=== PATIENT | male | born 1990 | race Caucasian/White ===

== ENCOUNTER 2019-11-01 07:36 | Observation (INO) ==
[2019-11-01] MEDS ORDERED: SODIUM CHLORIDE 0.9% 1000ML 1,000 ML IV ONE (07:55)
--- NOTE | 2019-11-01 08:00 | Emergency Department Note ---
History of Present Illness General Chief complaint: Abdominal Pain Stated complaint: RT SIDED ABD PAIN,CHILLS,FEVER Time Seen by Provider: 11/01/19 07:44 History of Present Illness Maximum Pain Intensity: 6 29-year-old male who presents to emergency department with complaint of right lower quadrant pain, fever and chills. The patient reports that he did not check his temperature this morning. The patient reports generalized abdominal pain last evening around 8 PM. Symptoms were not relieved with a bowel movement or urination. The patient could not sleep well overnight. Upon awakening this morning, the patient reports that the pain is now in the right lower quadrant. The pain is worsened with rotating his torso to the right, bending over and walking. The patient denies history of bowel disease or constipation. He denies any darkened urine, urinary frequency or urgency. He denies any pain radiating into the back or into the testicle. He denies any recent trauma to th e abdomen. The patient has had nausea without vomiting, and currently rates his discomfort a 6 out of 10. He reports that the pain is constant in nature with occasional sharp jabs of pain. He has no alleviating factors. Home Medications Home Medications Medication Instructions Recorded Confirmed Type Excedrin Migraine 2 tab PO Q6H PRN 11/01/19 11/01/19 History hydrocodone-acetaminophen [[place]] 1 - 2 tab PO .q4-6h PRN #15 tab 11/01/19 Rx Allergies Allergy/AdvReac Type Severity Reaction Status Date / Time No Known Allergies Allergy Unverified 11/01/19 08:08 Past Med/Surg History Medical History No significant past medical history Surgical History No significant past surgical history S/P appy (11/01/19) Laparoscopic Appendectomy Dr. Prieto 11-01-19 Social History Preferred Language: Greenlandic Communication Ability: Effective Sales Representative Facility Services Required: No Beliefs That Will Affect Care: None marital status: Single Current Living Situation: Alone current occupational status: employed Feels Safe at Home: Yes Smoking Status: Never smoker Hx Alcohol Use: Yes Alcohol type: beer, wine and hard liquor Hx Substance Use: No Review of Systems 10 system review was performed and was negative except for pertinent positives and negatives as indicated in history of present illness Physical Exam Vital Signs Vital Signs - 24 hr 11/01/19 07:38 11/01/19 09:16 Temperature 36.6 C Temperature Source Oral Pulse Rate 93 H Pulse Rate [Right Finger] 87 Pulse Rhythm [Right Finger] Regular Pulse Strength [Right Finger] Normal Respiratory Rate 18 18 Respiratory Effort / Characteristics Non-Labored Spontaneous Respiratory Depth Normal Respiratory Pattern Regular Blood Pressure 134/85 Blood Pressure [Right Arm] 139/87 Blood Pressure Mean 101 Blood Pressure Mean [Right Arm] 104 Blood Pressure Position [Right Arm] Sitting Pulse Oximetry 98 100 Oxygen Delivery Method Room Air Room Air Sepsis Recent Fever Within 48 Hours No Sepsis New/Unexplained Change in Mental Status No Sepsis Action Taken by Nursing No Action Required CONSTITUTIONAL: Healthy and well nourished. Patient appears in mild discomfort. HEENT: Normocephalic, atraumatic. Pupils equal, round and reactive. Ears and nares are clear. No scleral icterus or conjunctival injection. Mucous membranes are dry. NECK: Full active range of motion without discomfort. LYMPHATICS: No cervical chain adenopathy. RESPIRATORY: Clear to auscultation bilaterally with no wheezing, crackles, rhonchi or stridor. CARDIOVASCULAR: Regular rate and rhythm with no murmurs, rubs or gallops. GASTROINTESTINAL: Bowel sounds present in all quadrants. Patient has a positive McBurney's point tenderness. Minimally positive Rovsing sign. Negative heeltap. Negative psoas/obturator sign. Negative CVA tenderness. No abdominal rigidity, guarding or rebound. MUSCULOSKELETAL: Full range of motion of all joints without discomfort. INTEGUMENTARY: No rash or other significant dermatologic conditions noted. HEMATOLOGIC: No ecchymosis or petechiae. PSYCHIATRIC: Positive affect. NEUROLOGIC: No focal neurologic deficits noted. Course Course Patient history and physical exam were performed. Nurse's notes were reviewed. Vital signs were reviewed and were normal. IV access was established, and labs were drawn. The patient refused any analgesics on initial exam. Review of labs did not show any significant abnormalities. Urinalysis was also unremarkable without hematuria or signs of infection. CT of the abdomen and pelvis with IV contrast shows evidence for an acute uncomplicated appendicitis. The case was further discussed with Dr. Davey, ED attending physician, as well as Dhruv Briscoe PA-C with Dr. Prieto, general surgeon. Please see their dictations for further surgical treatment and final disposition. Administered Medications Discontinued Medications Bupivacaine HCl/Epinephrine Bitart (Sensorcaine/Epinephrine 0.5% Mpf 1:200,000) Confirm Administered Dose 20 ml .ROUTE .STK-MED ONE Stop: 11/01/19 10:31 Last Admin: 11/01/19 11:26 Dose: 20 ml Documented by: [id number] Hydromorphone HCl (Dilaudid) 1 mg IV Q2H PRN PRN Reason: Pain Stop: 11/15/19 18:29 Last Admin: 11/01/19 19:03 Dose: 1 mg Documented by: [id number] Sodium Chloride (Nss 1000ml) 1,000 mls @ 999 mls/hr IV .Q1H1M ONE Stop: 11/01/19 08:55 Last Infusion: 11/01/19 09:05 Dose: 0 mls/hr Documented by: [id number] Admin: 11/01/19 08:05 Dose: 999 mls/hr Documented by: [id number] Lactated Ringer's (Lr) 1,000 mls @ 125 mls/hr IV .Q8H SOHAIL Stop: 12/01/19 09:44 Last Infusion: 11/01/19 10:48 Dose: 0 mls/hr Documented by: [id number] Admin: 11/01/19 10:20 Dose: 125 mls/hr Documented by: [id number] Cefoxitin Sodium 2,000 mg/ (Dextrose) 60 mls @ 120 mls/hr IV ONE ONE Stop: 11/01/19 11:14 Last Infusion: 11/01/19 12:43 Dose: 0 mls/hr Documented by: [id number] Admin: 11/01/19 10:48 Dose: 120 mls/hr Documented by: [id number] Lactated Ringer's (Lr) 1,000 mls @ 80 mls/hr IV .[id number] SOHAIL Stop: 12/01/19 12:41 Last Infusion: 11/02/19 10:02 Dose: 0 mls/hr Documented by: [id number] Admin: 11/02/19 02:36 Dose: 80 mls/hr Documented by: [id number] Infusion: 11/02/19 02:21 Dose: 80 mls/hr Documented by: [id number] Admin: 11/01/19 13:51 Dose: 80 mls/hr Documented by: [id number] Promethazine HCl 25 mg/ Sodium (Chloride) 51 mls @ 204 mls/hr IV Q4H PRN PRN Reason: Nausea And Vomiting Stop: 12/01/19 18:27 Last Infusion: 11/01/19 19:00 Dose: 0 mls/hr Documented by: [id number] Admin: 11/01/19 18:45 Dose: 204 mls/hr Documented by: [id number] Ioversol (Optiray 320 100ml) 94 ml IV ONCE PRN PRN Reason: Interaction Checking Stop: 11/05/19 08:41 Last Admin: 11/01/19 08:43 Dose: 94 ml Documented by: [id number] Morphine Sulfate (Morphine Sulfate) 2 mg IV Q2H PRN PRN Reason: MODERATE Pain (Scale 4,5,6) Stop: 11/15/19 12:41 Last Admin: 11/01/19 16:07 Dose: 2 mg Documented by: [id number] Morphine Sulfate (Morphine Sulfate) 4 mg IV Q2H PRN PRN Reason: SEVERE Pain (Scale 7,8,9,10) Stop: 11/15/19 12:41 Last Admin: 11/01/19 13:52 Dose: 4 mg Documented by: [id number] Ondansetron HCl (Zofran) 4 mg IV Q4H PRN PRN Reason: Nausea And Vomiting Stop: 12/01/19 12:41 Last Admin: 11/01/19 16:52 Dose: 4 mg Documented by: [id number] Admin: 11/01/19 12:51 Dose: 4 mg Documented by: [id number] Medical Decision Making Medical Records Attestation: I reviewed the patient's medical records. Home Medications Current Medication List: was personally reviewed by me Laboratory Data Attestation: I reviewed the patient's lab results. Result diagrams: 11/01/19 08:05 11/01/19 08:05 Lab Results 11/01/19 11/01/19 11/01/19 Range/Units 08:05 08:05 09:35 WBC 10.62 (4.8-10.8) K/uL RBC 4.93 (4.7-6.1) M/uL Hgb 15.2 (14.0-18.0) g/dL Hct 43.0 (42-52) % MCV 87.2 (80-100) fL MCH 30.8 (25-34) pg MCHC 35.3 (32-36) g/dL RDW Std Deviation 41.1 (36.4-46.3) fL RDW Coeff of Saray 12.8 (11.5-14.5) % Plt Count 235 (130-400) K/uL MPV 8.8 (7.4-10.4) fL Immature Gran % (Auto) 0.2 % Neut % (Auto) 72.7 % Lymph % (Auto) 17.5 % [place] % (Auto) 9.0 % Eos % (Auto) 0.4 % Baso % (Auto) 0.2 % Immature Gran # (Auto) 0.02 (0.00-0.02) K/uL Neut # (Auto) 7.72 H (1.4-6.5) K/uL Lymph # (Auto) 1.86 (1.2-3.4) K/uL [place] # (Auto) 0.96 H (0.11-0.59) K/uL Eos # (Auto) 0.04 (0-0.5) K/uL Baso # (Auto) 0.02 (0-0.2) K/uL Sodium 138 (136-145) mmol/L Potassium 3.5 (3.5-5.1) mmol/L Chloride 107 (98-107) mmol/L Carbon Dioxide 25 (21-32) mmol/L Anion Gap 6.0 (3-11) BUN 10 (7-18) mg/dl Creatinine 1.01 (0.6-1.4) mg/dl Est Cr Clr Drug Dosing 109.4 ml/min Est GFR ( Amer) 114.3 Est GFR (Non-Af Amer) 98.7 BUN/Creatinine Ratio 9.4 L (10-20) Glucose 132 H (70-99) mg/dl Calcium 9.1 (8.5-10.1) mg/dl Total Bilirubin 0.6 (0.2-1) mg/dl AST 17 (15-37) U/L ALT 49 (12-78) U/L Alkaline Phosphatase 78 (45-117) U/L Total Protein 7.8 (6.4-8.2) gm/dl Albumin 4.1 (3.4-5.0) gm/dl Globulin 3.7 (2.5-4.0) gm/dl Albumin/Globulin Ratio 1.1 (0.9-2) Lipase 151 (73-393) U/L Urine Color Yellow Urine Appearance Clear (Clear) Urine pH 6.0 (4.5-7.5) Ur Specific [place] 1.021 (1.000-1.030) Urine Protein Negative (Negative) Urine Glucose (UA) Negative (Negative) Urine Ketones Negative (Negative) Urine Blood Negative (Negative) Urine Nitrite Negative (Negative) Urine Bilirubin Negative (Negative) Urine Urobilinogen Negative (Negative) Ur Leukocyte Esterase Negative (Negative) Imaging Data Attestation: I personally reviewed and interpreted this imaging study as follows: My Impression: My interpretation of the CT scan of the abdomen and pelvis with IV contrast shows evidence for an uncomplicated acute appendicitis. No bowel obstruction or free air noted. Radiologist report was also reviewed. Radiologist's Impression: CT abd pelvis IV con only CLINICAL HISTORY: 29 years-old Male presenting with RLQ abd pain, nausea, chills. TECHNIQUE: Multidetector CT of the abdomen and pelvis was performed after the administration of intravenous contrast. IV contrast: 94 mL of Optiray 320. One or more dose lowering techniques were used consistent with the principles of ALARA (as low as reasonably achievable), including automatic exposure control, mA or kV adjustment to individual patient size, and/or use of iterative reconstruction. COMPARISON: None. CT DOSE (mGy.cm): The estimated cumulative dose is 360.32 mGy.cm. FINDINGS: Financial Aid Coordinator topogram: Unremarkable. Lung bases: Normal heart size. No pericardial or pleural effusion. No focal infiltrate or nodule at the lung bases. Liver: Normal morphology. No liver lesion. Patent hepatic vasculature. Biliary: No intrahepatic or extrahepatic biliary ductal dilatation. Normal gallbladder. Pancreas: Normal. Spleen: Normal. Adrenal glands: Normal. Kidneys and ureters: Normal. No hydronephrosis. Bladder: Normal. Pelvic organs: Prostate and seminal vesicles normal. Bowel: Dilated appendix measuring 10 mm in diameter with wall thickening and periappendiceal fat stranding. No bowel obstruction. Peritoneal cavity: No free fluid or intraperitoneal gas. Lymph nodes: No enlarged lymph nodes in the abdomen or pelvis. Vasculature: Aorta and IVC patent and normal in caliber. Abdominal wall: Normal. Musculoskeletal: Normal. IMPRESSION: 1. Acute uncomplicated appendicitis. Surgical consultation is necessary. Blood Pressure Blood Pressure Findings: Normal blood pressure MDM Narrative CT findings are consistent with acute appendicitis. No bowel obstruction or perforation appreciated. Laboratory studies are not consistent with UTI, pancreatitis, cholecystitis or hepatitis. Impression & Plan Acute appendicitis Discharge Plan Visit Data *Final* Discharge Date/Time: 11/01/19 10:08 Chief Complaint: Abdominal Pain Stated Complaint: RT SIDED ABD PAIN,CHILLS,FEVER ED Provider: Chris Davey ED Midlevel Provider: Arthur Howard Discharge Problem: Acute appendicitis Patient Disposition: Still a Patient Discharge Instructions Interventions: ED Discharge Assessment Last Done: 11/01/19 10:07 Discharge Problem: Acute appendicitis Qualifiers: Acute appendicitis type: with localized peritonitis Appendicitis gangrene presence: without gangrene Appendicitis perforation presence: without perforation Appendicitis abscess presence: without abscess Qualified Code(s): K35.30 - Acute appendicitis with localized peritonitis, without perforation or gangrene
[2019-11-01 08:16] LABS: Basophils # (auto) 0.02 K/uL (0-0.2); Basophils % (auto) 0.2 %; Eosinophils # (auto) 0.04 K/uL (0-0.5); Eosinophils % (auto) 0.4 %; Hemoglobin 15.2 g/dL (14.0-18.0); Immature Granulocytes # (auto) 0.02 K/uL (0.00-0.02); Immature Granulocytes % (auto) 0.2 %; Lymphocytes # (auto) 1.86 K/uL (1.2-3.4); Lymphocytes % (auto) 17.5 %; Mean Corpuscular Hemoglobin 30.8 pg (25-34); Mean Corpuscular Hgb Conc 35.3 g/dL (32-36); Mean Corpuscular Volume 87.2 fL (80-100); Mean Platelet Volume 8.8 fL (7.4-10.4); Monocytes # (auto) 0.96 K/uL (0.11-0.59); Neutrophils # (auto) 7.72 K/uL (1.4-6.5); Neutrophils % (auto) 72.7 %; Platelet Count 235 K/uL (130-400); RDW Coefficient of Variation 12.8 % (11.5-14.5); RDW Standard Deviation 41.1 fL (36.4-46.3); Red Blood Count 4.93 M/uL (4.7-6.1); White Blood Count 10.62 K/uL (4.8-10.8)
[2019-11-01 08:32] LABS: Albumin Level 4.1 gm/dl (3.4-5.0); BUN Creatinine Ratio 9.4 (10-20); Calcium 9.1 mg/dl (8.5-10.1); Creatinine Clr Calc Pharmacy 109.4 ml/min; Est GFR (African American) 114.3; Est GFR (Non-African American) 98.7; Potassium 3.5 mmol/L (3.5-5.1)
[2019-11-01 08:34] LABS: Albumin Globulin Ratio 1.1 (0.9-2); Bilirubin,Total 0.6 mg/dl (0.2-1); Globulin 3.7 gm/dl (2.5-4.0); Total Protein 7.8 gm/dl (6.4-8.2)
[2019-11-01] MEDS ORDERED: IOVERSOL 100ml IV PRN (08:42)
--- NOTE | 2019-11-01 09:14 | CT Scan Report ---
CT abd pelvis IV con only CLINICAL HISTORY: 29 years-old Male presenting with RLQ abd pain, nausea, chills. TECHNIQUE: Multidetector CT of the abdomen and pelvis was performed after the administration of intra venous contrast. IV contrast: 94 mL of Optiray 320. One or more dose lowering techniques were used co nsistent with the principles of ALARA (as low as reasonably achievable), including automatic exposure control, mA or kV adjustment to individual patient size, and/or use of iterative reconstruction. COMPARISON: None. CT DOSE (mGy.cm): The estimated cumulative dose is 360.32 mGy.cm. FINDINGS: Electrode Turner And Finisher topogram: Unremarkable. Lung bases: Normal heart size. No pericardial or pleural effusion. No focal infiltrate or nodule at t he lung bases. Liver: Normal morphology. No liver lesion. Patent hepatic vasculature. Biliary: No intrahepatic or extrahepatic biliary ductal dilatation. Normal gallbladder. Pancreas: Normal. Spleen: Normal. Adrenal glands: Normal. Kidneys and ureters: Normal. No hydronephrosis. Bladder: Normal. Pelvic organs: Prostate and seminal vesicles normal. Bowel: Dilated appendix measuring 10 mm in diameter with wall thickening and periappendiceal fat stra nding. No bowel obstruction. Peritoneal cavity: No free fluid or intraperitoneal gas. Lymph nodes: No enlarged lymph nodes in the abdomen or pelvis. Vasculature: Aorta and IVC patent and normal in caliber. Abdominal wall: Normal. Musculoskeletal: Normal. IMPRESSION: 1. Acute uncomplicated appendicitis. Surgical consultation is necessary. ACT 112: Negative or not required by law. Electronically signed by: Felix Ventura M.D. 11/01/2019 9:13 AM
[2019-11-01] MEDS ORDERED: LACTATED RINGER'S 1,000 ML IV SCH (09:45)
--- NOTE | 2019-11-01 09:45 | History & Physical Report ---
Date of Service November 01, 2019 Assessment & Plan (1) Acute appendicitis: Plan for laparoscopic appendectomy this morning by Dr. Prieto. Antibiotics can be given in the OR. as above. appears to be straightforward appendicitis. discussed options. rec appendectomy. discussed risks (bleeding/infection/dvt/pe/mi/cva/injury to another organ/staple line leaks/etc....). questions answered. pt agreeable. History of Present Illness Primary Care Provider: PT DECLINED 29 y/o male with generalized abdominal pain began around 8 PM last night. Continued overnight and now localized to RLQ. Had chills last night. No N/V. No previous surgery. Allergies Allergy/AdvReac Type Severity Reaction Status Date / Time No Known Allergies Allergy Unverified 11/01/19 08:08 Home Medications Home Medications Medication Instructions Recorded Confirmed Type [id number]-[id number]-[id number] 2 tab PO Q6H PRN 11/01/19 11/01/19 History [Excedrin Migraine] Past Med/Surg History Medical History No significant past medical history Surgical History No significant past surgical history Social History marital status: Single current occupational status: employed Feels Safe at Home: Yes Smoking Status: Never smoker Review of Systems Constitutional: no fever and no chills Gastrointestinal: + abdominal pain; no nausea and no vomiting Physical Exam Constitutional: WD/WN, vitals as above Respiratory: normal respiratory effort, lungs clear to auscultation Cardiovascular: RRR, no murmur, no edema Gastrointestinal (Abdomen): Inspection/Auscultation: abdomen not distended Percussion/Palpation: + abdomen tender (RLQ) and abdomen soft Results & Data Results & Data ([facility]) Vital Signs (Past 12 Hours) Vital Signs Temp Pulse Pulse Resp BP BP Pulse Ox 11/01/19 09:16 87 18 139/87 100 11/01/19 07:38 36.6 C 93 H 18 134/85 98 PG Care Time/CCT Total # of Minutes Spent Total Time Spent with Patient: Total time spent is greater than 50% in installation coordinator rdination of care (as documented) at patient's floor/unit and/or counseling patient: Coding Level of Care Code None Diagnoses Acute appendicitis K35.30 Acute appendicitis type: with localized peritonitis Appendicitis abscess presence: without abscess Appendicitis gangrene presence: without gangrene Appendicitis perforation presence: without perforation (1) Acute appendicitis Acute appendicitis type: with localized peritonitis Appendicitis abscess presence: without abscess Appendicitis gangrene presence: without gangrene Appendicitis perforation presence: without perforation Qualified Code(s): K35.30 - Acute appendicitis with localized peritonitis, without perforation or gangrene
[2019-11-01] MEDS ORDERED: ROCURONIUM BROMIDE 10 MG/ML 5 ML VIAL ONE (09:49)
[2019-11-01] MEDS ORDERED: PROPOFOL IV EMULSION 10 MG/ML 20 ML VIAL IV ONE (09:49)
[2019-11-01] MEDS ORDERED: NEOSTIGMINE METHYLSULFATE 5 MG/5 ML SYR ONE (09:49)
[2019-11-01] MEDS ORDERED: LIDOCAINE HCL 2% 2 ML VIAL/AMP(20MG/ML) INFIL ONE (09:49)
[2019-11-01] MEDS ORDERED: GLYCOPYRROLATE 0.2 MG/ML VIAL ONE (09:49)
[2019-11-01] MEDS ORDERED: fentaNYL citrate 100 MCG/2 ML VIAL ONE ×2 (09:50→11:11)
[2019-11-01] MEDS ORDERED: MIDAZOLAM HCL 1 MG/ML 2ML VIAL ONE (09:50)
[2019-11-01 09:58] LABS: Appearance Urine Clear (Clear); Bilirubin Urine Negative (Negative); Blood Urine Negative (Negative); Color Urine Yellow; Glucose Urine UA Negative (Negative); Ketones Urine Negative (Negative); Leukocyte Esterase Urine Negative (Negative); Nitrite Urine Negative (Negative); Protein Urine Negative (Negative); Specific Gravity Urine 1.021 (1.000-1.030); Urobilinogen Urine Negative (Negative)
[2019-11-01] MEDS ORDERED: HYDROmorphone INJ 1 MG/ML SYRINGE IV PRN (10:18)
[2019-11-01] MEDS ORDERED: fentaNYL citrate 100 MCG/2 ML VIAL IV PRN (10:18)
[2019-11-01] MEDS ORDERED: ePHEDrine sulfate 50 MG/ML AMP IV PRN (10:18)
[2019-11-01] MEDS ORDERED: LABETALOL HCL IV 5 MG/ML 20ML IV PRN (10:18)
[2019-11-01] MEDS ORDERED: PHENYLEPHRINE 100MCG/ML 5ML SYR IV PRN (10:18)
[2019-11-01] MEDS ORDERED: ONDANSETRON INJ 2 MG/ML 2 ML VIAL IV PRN (10:18)
[2019-11-01] MEDS ORDERED: MEPERIDINE HCL 25 MG/ML CARP/VIAL IV PRN (10:18)
[2019-11-01] MEDS ORDERED: ATROPINE SULFATE 0.1 MG/ML 10ML SYR IV PRN (10:18)
[2019-11-01] MEDS ORDERED: cefOXitin 2,000 MG in DEXTROSE 5% 50 ML IV STA (10:25)
[2019-11-01] MEDS ORDERED: BUPIVACAINE/EPINEPHRINE 0.5% MPF 1:200,000 10 ML VIAL ONE (10:30)
--- NOTE | 2019-11-01 10:36 | Anesthesiology Consultation ---
Date of Service November 01, 2019 Assessment & Plan (1) Encounter for pre-operative examination: Chart Review Chart Review: Acceptable Risk for Surgery and Patient NOT seen in Pre Admission Testing Consults Requested none History Surgery Operation Date: 11/01/19 09:45 Proposed Procedures p Laparoscopic Appendectomy - Reinier Prieto DO Height/Weight Height: 5 ft 10 in Weight: 81 kg Allergies Allergy/AdvReac Type Severity Reaction Status Date / Time No Known Allergies Allergy Unverified 11/01/19 08:08 Medications Home Medications Medication Instructions Recorded Confirmed Last Taken lacxnuh-tbrsfcvjmghdw-amfhaegb 2 tab PO Q6H PRN 11/01/19 11/01/19 10/31/19 23:00 [Excedrin Migraine] Active Medications Generic Name Dose Route Start Last Admin Trade Name Freq PRN Reason Stop Dose Admin Ioversol 94 ml 11/01/19 08:42 11/01/19 08:43 Optiray 320 100ml IV 11/05/19 08:41 94 ml ONCE PRN Administration Interaction Checking NPO Date Last Intake of Fluids: 10/31/19 Time Last Intake of Fluids: 02:00 Date Last Intake of Solids: 10/31/19 Time Last Intake of Solids: 19:00 Past Medical History Medical History No significant past medical history Past Surgical History Surgical History No significant past surgical history Social History Smoking Status: Never smoker Physical Exam Vital Signs Last Vital Signs Temp 37.3 C 11/01/19 10:15 Pulse 92 H 11/01/19 10:15 Resp 18 11/01/19 10:15 BP 133/92 11/01/19 10:15 Pulse Ox 98 11/01/19 10:15 Testing Laboratory Results 11/01/19 08:05 11/01/19 08:05 Urine Color Yellow 11/01/19 09:35 Urine Appearance Clear (Clear) 11/01/19 09:35 Urine pH 6.0 (4.5-7.5) 11/01/19 09:35 Ur Specific [place] 1.021 (1.000-1.030) 11/01/19 09:35 Urine Protein Negative (Negative) 11/01/19 09:35 Urine Glucose (UA) Negative (Negative) 11/01/19 09:35 Urine Ketones Negative (Negative) 11/01/19 09:35 Urine Nitrite Negative (Negative) 11/01/19 09:35 Ur Leukocyte Esterase Negative (Negative) 11/01/19 09:35
[2019-11-01] MEDS ORDERED: cefOXitin 2,000 MG in DEXTROSE 5% 50 ML IV ONE (10:45)
--- NOTE | 2019-11-01 11:22 | Anesthesiology Progress Note ---
Date of Service November 01, 2019 Anesthesia Post Procedure Vital Signs Vital Signs: Temp Pulse Pulse Resp BP BP Pulse Ox 11/01/19 10:15 37.3 C 92 H 18 133/92 98 11/01/19 09:16 87 18 139/87 100 11/01/19 07:38 36.6 C 93 H 18 134/85 98 Pain Intensity Right Lower Abdomen: Pain Intensity: 2 Transfer of Care Handoff Completed per policy Notes Mental Status: alert / awake / arousable Patient Amnestic to Procedure: Yes Nausea / Vomiting: adequately controlled Pain: adequately controlled Airway Patency, RR, SpO2: stable & adequate BP & HR: stable & adequate Hydration State: stable & adequate Anesthetic Complications: no major complications apparent and Pt Satisfied with anesthetic care
--- NOTE | 2019-11-01 11:36 | Operative Report ---
PG Post Operative Report Pre & Post Diagnosis Operation Date: 11/01/19 09:45 Pre-Op Diagnosis: Acute Appendicitis Post-Op Diagnosis: Acute Appendicitis I identified the patient and participated in the time-out.: Yes Procedure Operation Date: 11/01/19 09:45 Actual Procedures p Laparoscopic Appendectomy(Not Applicable) - Reinier Prieto DO Surgeon Reinier Prieto DO Certified Paralegal rene Briscoe Estimated Blood Loss 5 Findings Consistent with Post-Op Diagnosis Specimens appendix Description of Procedure After informed consent was obtained the patient was taken to the operating room and placed in supine position. After successful intubation the left arm was tucked. I began by making a periumbilical incision with an 11 blade scalpel and carried this down through the soft tissue using electrocautery. The anterior rectus fascia was opened using electrocautery and 2 #0 Vicryl stay sutures were placed. The peritoneum was elevated using hemostats and incised under direct vision using a Metzenbaum scissor. A finger sweep was performed. A 12 mm Ontiveros trocar was placed and the abdomen was insufflated to 18 mmHg. A laparoscope was inserted and the abdomen was examined in 360. A suprapubic 5 mm port and a left lower quadrant 12 mm port were placed under direct vision. The patient was air planed to the left as well as placed in a slight Trendelenburg position. We began by looking in the right lower quadrant. We were able to readily identify the appendix and it was grossly inflamed. It had not perforated. There is a small amount of purulent fluid in the right lower quadrant and the pelvis. We immediately irrigated and suctioned this out. I was able to use primarily blunt dissection to pull the appendix away from the right lower quadrant sidewall. I was then able to create a small window in the meso-appendix using [place] dissectors. Next we transected the appendix at its base with the cecum with a 60 mm brown cartridge linear stapler. I used the same brown cartridge 60 mm stapler and transect the mesentery of the appendix. It was then placed into an Endo Catch bag and removed from the camera port site. We thoroughly irrigated the right lower quadrant as well as the pelvis. There was adequate hemostasis. I ran the small bowel backwards from the terminal ileum for about 6 feet all of which was normal. All the peritoneal surfaces were normal. Small/ large bowel, liver, stomach etc. all appeared grossly normal. We did a final irrigation and then removed all the trochars and desufflated the abdomen. The fascia of the camera port as well as the left lower quadrant were closed using 0 Vicryl in [id number] fashion. Wounds were all irrigated and closed using 4-0 Monocryl. Marcaine was injected around them for postoperative analgesia and skin glue used as a dressing. The patient was awakened extubated and transferred to recovery in stable condition. My physician's printer assistant was present through the entire case. he assisted with prepping the patient and helped with exposure for port placement, helped run the camera and helped with fascial/wound closure at the end of the procedure as well as dressing placement. I attest to the content of the Intraoperative Record and any orders documented therein. Any exceptions are noted below. I attest to the content of the Intraoperative Record and any orders documented therein. Any exceptions are noted below.
--- NOTE | 2019-11-01 12:18 | Anesthesiology Progress Note ---
Date of Service November 01, 2019 Anesthesia Post Procedure Vital Signs Vital Signs: Temp Pulse Pulse Pulse Resp BP BP 11/01/19 12:05 96 H 16 139/81 11/01/19 11:55 93 H 16 142/90 H 11/01/19 11:48 36.3 C L 114 H 16 142/102 H 11/01/19 10:15 37.3 C 92 H 18 11/01/19 09:16 87 18 11/01/19 07:38 36.6 C 93 H 18 134/85 BP Pulse Ox 11/01/19 12:05 95 11/01/19 11:55 95 11/01/19 11:48 97 11/01/19 10:15 133/92 98 11/01/19 09:16 139/87 100 11/01/19 07:38 98 Pain Intensity Right Lower Abdomen: Pain Intensity: 0 Transfer of Care Handoff Completed per policy Notes Mental Status: alert / awake / arousable Patient Amnestic to Procedure: Yes Nausea / Vomiting: adequately controlled Pain: adequately controlled Airway Patency, RR, SpO2: stable & adequate BP & HR: stable & adequate Hydration State: stable & adequate Anesthetic Complications: no major complications apparent and Pt Satisfied with anesthetic care
[2019-11-01] MEDS ORDERED: MoRPHine SULFATE 4 MG/ML 1 ML CARP\\VIAL IV PRN (12:42)
[2019-11-01] MEDS ORDERED: HYDROCODONE/ACETAMOPHEN 5/325MG TAB PO PRN ×2 (12:42)
[2019-11-01] MEDS ORDERED: MoRPHine SULFATE 2 MG/ML CARP IV PRN (12:42)
[2019-11-01] MEDS: ONDANSETRON INJ 2 MG/ML 2 ML VIAL IV PRN ×2 (12:51→16:52)
[2019-11-01] MEDS: LACTATED RINGER'S 1,000 ML IV SCH (13:51)
[2019-11-01] MEDS ORDERED: PROMETHAZINE HCL 25 MG in SODIUM CHLORIDE 0.9% 50 ML IV PRN (18:28)
[2019-11-01] MEDS: HYDROmorphone INJ 1 MG/ML SYRINGE IV PRN ×2 (18:45→19:03)
[2019-11-02] MEDS: LACTATED RINGER'S 1,000 ML IV SCH (02:36)
--- NOTE | 2019-11-02 08:59 | Surgery Progress Note ---
Date of Service November 02, 2019 Assessment & Plan (1) Acute appendicitis: pod 1 doing well ok for d/c. instructions given. Subjective pt seen. feeling much better today. nia diet. feels well. nausea resolved. pain control good at this point. Physical Exam Physical Exam: alert. nad. wounds look good. Results & Data Vital Signs (Past 12 Hours) Vital Signs Temp Pulse Resp BP Pulse Ox 11/02/19 07:34 36.7 C 66 16 108/69 99 11/02/19 02:33 36.6 C 72 16 122/75 99 11/01/19 23:20 36.7 C 90 16 107/68 96 PG Care Time/CCT Total # of Minutes Spent Total Time Spent with Patient: Total time spent is greater than 50% in coordination of care (as documented) at patient's floor/unit and/or counseling patient: Coding Level of Care Code None Diagnoses Acute appendicitis K35.30 Acute appendicitis type: with localized peritonitis Appendicitis abscess presence: without abscess Appendicitis gangrene presence: without gangrene Appendicitis perforation presence: without perforation (1) Acute appendicitis Acute appendicitis type: with localized peritonitis Appendicitis abscess presence: without abscess Appendicitis gangrene presence: without gangrene Appendicitis perforation presence: without perforation Qualified Code(s): K35.30 - Acute appendicitis with localized peritonitis, without perforation or gangrene
--- NOTE | 2019-11-02 13:21 | Anesthesiology Progress Note ---
Date of Service November 02, 2019 Pt alert oriented. No c/o discomfort. VSS. Anesthesia Post Procedure Vital Signs Vital Signs: Temp Pulse Resp BP Pulse Ox 11/02/19 09:44 36.7 C 66 16 108/69 99 11/02/19 07:34 36.7 C 66 16 108/69 99 11/02/19 02:33 36.6 C 72 16 122/75 99 11/01/19 23:20 36.7 C 90 16 107/68 96 11/01/19 19:28 36.8 C 104 H 16 120/77 94 11/01/19 15:35 36.6 C 97 H 16 131/82 96 11/01/19 14:35 82 18 119/77 96 11/01/19 13:40 99 H 18 128/82 95 Pain Intensity Right Lower Abdomen: Pain Intensity: 0 Abdomen: Pain Intensity: 3 Notes Mental Status: alert / awake / arousable and participated in evaluation Patient Amnestic to Procedure: Yes Nausea / Vomiting: see Notes below Pain: adequately controlled Airway Patency, RR, SpO2: stable & adequate BP & HR: stable & adequate Hydration State: stable & adequate Anesthetic Complications: no major complications apparent and Pt Satisfied with anesthetic care
--- NOTE | 2019-11-06 09:32 | Discharge Summary ---
Date of Service November 06, 2019 Admission HPI Per Admitting Provider 29 y/o male with generalized abdominal pain began around 8 PM last night. Continued overnight and now localized to RLQ. Had chills last night. No N/V. No previous surgery. Principal Diagnosis Acute appendicitis Discharge Exam Gastrointestinal (Abdomen) Inspection/Auscultation: + abdominal surgical incision (clean, dry); abdomen not distended Percussion/Palpation: abdomen soft Discharge Data Allergies Allergy/AdvReac Type Severity Reaction Status Date / Time No Known Allergies Allergy Unverified 11/01/19 08:08 Consultations 11/01/19 09:31 Consult General Surgery Stat Procedures Performed Operation Date: 11/01/19 09:45 Actual Procedures p Laparoscopic Appendectomy(Not Applicable) - Reinier Prieto DO Ordered Studies 11/01/19 07:55 CT abd pelvis IV con only Stat Hospital Course (1) Acute appendicitis: 29 y/o male presented to the ER with abdominal pain. White count was 1 [address] was consistent with acute appendicitis. He was taken to the operating room for laparoscopic appendectomy and transferred to the surgical floor for overnight observation. By the next morning he was able to tolerate diet and oral analgesics and was stable for discharge home. Total Time Total Time Spent Total Time Spent (In Minutes): 10 Discharge Plan Discharge Items Patient Disposition: Home - Self-Care Reason For Visit: POST OP Discharge Diagnosis: laparoscopic appendectomy Activity: Per Instructions section Lifting: No more than 10 pounds Bathing Comment: may shower starting 11/02/19; no soaking in tubs Exercise/Sports: Wait until after follow-up appointment Driving/Machine Use: do not resume driving while taking narcotics for pain Non-emergency contact: Surgeon Call non-emergency contact if: you have any medication questions, your symptoms worsen, your pain is not controlled, your pain is concerning for you, you have a fever, your temperature is above 101.5, your wound has increased redness, your wound has increased drainage and your wound pain has increased Follow-up/Referrals: Reinier Prieto DO [Surgeon] - 11/19/19 9:00 am (Please call to schedule follow up in clinic within 2 weeks) PT,DECLINED [Primary Care Provider] - Diet: Regular Addtl Attending Provider Instructions: Pending Studies at Discharge: Yes Studies:: surgical pathology Stand-Alone Forms: [facility] Medications and DC Order Prescriptions: New hydrocodone-acetaminophen [[place]] 5-325 mg tablet 1 - 2 tab PO .q4-6h PRN (Reason: pain, for initial therapy, max 6 tabs per day) Qty: 15 RF: 0 Continued Excedrin Migraine 250-250-65 mg Tablet 2 tab PO Q6H PRN (Reason: Pain) RF: 0 Discharge Orders: Discharge Order (Routine); Ordered 11/02/19 Ordered By: Emelyn Elizalde Admission Data Admit Date/Time: 11/01/19 11:44 Attending Provider: Reinier Prieto Admit Provider: Reinier Prieto Primary Care Provider: PT,DECLINED Other Interventions: Discharge Summary Assessment (RN) Last Done: 11/02/19 09:44 DC Date/Time DO NOT enter until pt leaves facility: 11/02/19 10:50 Coding Level of Care Code D/C Day Management <30 mins Diagnoses Acute appendicitis K35.30 Acute appendicitis type: with localized peritonitis Appendicitis abscess presence: without abscess Appendicitis gangrene presence: without gangrene Appendicitis perforation presence: without perforation
== END 2019-11-02 10:50 | disposition home or self-care (01) ==
LOC: ED 07:36 → 3N 10:08 → ASU 10:08 → 3E 13:55
DX: K35.80 Unspecified acute appendicitis